=== PATIENT | female | born 1930 | race Caucasian/White ===

== ENCOUNTER 2016-04-26 11:07 | Emergency (ER) | payer MEDICARE ==
[~2016-04-26] VITALS: Ht 167.6 cm; Wt 87.6 kg
[2016-04-26 11:13] VITALS: BP 116/62; PULSE 55; RESP 15; TEMP 98.6; O2SAT 94
[2016-04-26] MEDS ORDERED: HYDR25TA5 PO (12:06)
[2016-04-26] MEDS ORDERED: [UNRECOGNIZED DRUG - CODE] (12:06)
[2016-04-26] MEDS ORDERED: GLIM2TAB PO (12:06)
[2016-04-26] MEDS ORDERED: ANAS1TAB PO (12:06)
[2016-04-26] MEDS ORDERED: WARF-23 PO (12:06)
[2016-04-26] MEDS ORDERED: CALTTAB PO (12:06)
[2016-04-26] MEDS ORDERED: DILT-64 PO (12:06)
[2016-04-26] MEDS ORDERED: MULT400T PO (12:06)
[2016-04-26] MEDS ORDERED: DONE10TA7 PO (12:06)
[2016-04-26] MEDS ORDERED: WARF-21 PO (12:06)
[2016-04-26] MEDS ORDERED: METO25TA3 PO (12:06)
[2016-04-26] MEDS ORDERED: NAME10TA PO (12:06)
[2016-04-26] MEDS ORDERED: LOSA50TA PO (12:06)
[2016-04-26] MEDS ORDERED: SODIUM CHLORIDE 0.9% FLUSH 5 ML FLUSH IVF PRN (12:15)
--- NOTE | 2016-04-26 12:24 | PD ---
HPI Chief Complaint: General Weakness Time Seen by Provider: 12:16 Travel History International Travel<30 days: No Contact w/Intl Traveler<30days: No Traveled to known affect area: No History of Present Illness HPI 85-year-old female patient with history of dementia, A. fib on Coumadin, breast cancer currently in remission, presents to the ER today because her family states that she has been treated for UTI in the past week with Macrobid, but over the last 2 days they have noticed increased lethargy and disorientation. She has had no fevers, vomiting, or other complaints. Modifying Factors: None Associated Signs & Symptoms: Increased altered mental status, lethargy, after UTI treatment Risk Factors: Dementia PFSH Past Medical History Alzheimer's Disease: Yes (DEMENTIA) Atrial Fibrillation: Yes Cancer: Yes (BREAST) Diabetes: Yes Patient Takes Glucophage: No Hypertension: Yes ?: Not Past Surgical History Hysterectomy: Yes Other Surgery: Yes (LUMPECTOMY) Social History Alcohol Use: No Tobacco Use: No Substance Use: No Allergies-Medications (Allergen,Severity, Reaction): Coded Allergies: No Known Allergies (Unverified , 04/26/16) Reported Meds & Prescriptions Reported Meds & Active Scripts Active Reported Metoprolol Tartrate 25 Mg Tab 25 Mg PO BID Donepezil 10 Mg Tab 10 Mg PO HS Glimepiride 2 Mg Tab 2 Mg PO DAILY Take with breakfast or first main meal Losartan (Losartan Potassium) 50 Mg Tab 50 Mg PO DAILY Anastrozole 1 Mg Tab 1 Mg PO DAILY Namenda (Memantine) 10 Mg Tab 10 Mg PO BID Hydrochlorothiazide 25 Mg Tab 25 Mg PO DAILY Multaq (Dronedarone) 400 Mg Tab 400 Mg PO BID Caltrate 600+D (Calcium Carbonate-Cholecalciferol) 600-800 Mg-Unit Tab 1 Tab PO BID Nitrofurantoin (Bulk) Bulk Pow Diltiazem CD 24 HR 240 Mg Caper 240 Mg PO DAILY Warfarin 7.5 Mg Tab 7.5 Mg PO 2 DAYS Warfarin 5 Mg Tab 5 Mg PO 5 DAYS Review of Systems Except as stated in HPI: all other systems reviewed are Neg (per family) Physical Exam Narrative GENERAL: Well-developed elderly white female who is currently awake, alert, slow to answer questions, oriented to self. SKIN: Warm and dry. HEAD: Atraumatic. Normocephalic. EYES: Pupils equal and round. No scleral icterus. No injection or drainage. ENT: No nasal bleeding or discharge. Mucous membranes pink and moist. NECK: Trachea midline. No JVD. CARDIOVASCULAR: Slow and regular. No murmurs appreciated.. RESPIRATORY: No accessory muscle use. Clear to auscultation. Breath sounds equal bilaterally. GASTROINTESTINAL: Abdomen soft, non-tender, nondistended. Hepatic and splenic margins not palpable. MUSCULOSKELETAL: No obvious deformities. No clubbing. No cyanosis. No edema. NEUROLOGICAL: Awake and alert. No obvious cranial nerve deficits. Motor grossly within normal limits. Normal speech. Slow to answer questions. Oriented to self. PSYCHIATRIC: Appropriate mood and affect; insight and judgment normal. Data Data Last Documented VS Vital Signs Date Time Temp Pulse Resp B/P Pulse Ox O2 Delivery O2 Flow Rate FiO2 04/26/16 13:45 52 20 127/61 93 04/26/16 11:13 98.6 Orders Electrocardiogram (04/26/16 12:05) Complete Blood Count With Diff (04/26/16 12:05) Comprehensive Metabolic Panel (04/26/16 12:05) Prothrombin Time / Inr (Pt) (04/26/16 12:05) Act Partial Throm Time (Ptt) (04/26/16 12:05) Troponin I (04/26/16 12:05) Lactic Acid Sepsis Protocol (04/26/16 12:05) Urinalysis - C+S If Indicated (04/26/16 12:05) Blood Culture (04/26/16 12:05) Blood Glucose (04/26/16 12:05) Ecg Monitoring (04/26/16 12:05) Iv Access Insert/Monitor (04/26/16 12:05) Cath For Specimen (04/26/16 12:05) Oximetry (04/26/16 12:05) Sodium Chloride 0.9% Flush (Ns Flush) (04/26/16 12:15) Chest, Single Ap (04/26/16 12:16) Ct Brain W/O Iv Contrast(Rout) (04/26/16 12:16) Sodium Chlorid 0.9% 500 Ml Inj (Ns 500 M (04/26/16 14:00) Labs Laboratory Tests Test 04/26/16 04/26/16 04/26/16 12:20 12:30 12:35 White Blood Count 9.5 TH/MM3 Red Blood Count 4.05 MIL/MM3 Hemoglobin 11.5 GM/DL Hematocrit 35.1 % Mean Corpuscular Volume 86.6 FL Mean Corpuscular Hemoglobin 28.4 PG Mean Corpuscular Hemoglobin 32.8 % Concent Red Cell Distribution Width 14.0 % Platelet Count 266 TH/MM3 Mean Platelet Volume 7.1 FL Neutrophils (%) (Auto) 73.6 % Lymphocytes (%) (Auto) 14.4 % Monocytes (%) (Auto) 7.5 % Eosinophils (%) (Auto) 0.7 % Basophils (%) (Auto) 3.8 % Neutrophils # (Auto) 6.9 TH/MM3 Lymphocytes # (Auto) 1.4 TH/MM3 Monocytes # (Auto) 0.7 TH/MM3 Eosinophils # (Auto) 0.1 TH/MM3 Basophils # (Auto) 0.4 TH/MM3 CBC Comment DIFF FINAL Differential Comment Prothrombin Time 34.9 SEC Prothromb Time International 3.0 RATIO Ratio Activated Partial 40.8 SEC Thromboplast Time Sodium Level 132 MEQ/L Potassium Level 4.7 MEQ/L Chloride Level 95 MEQ/L Carbon Dioxide Level 26.6 MEQ/L Anion Gap 10 MEQ/L Blood Urea Nitrogen 22 MG/DL Creatinine 1.30 MG/DL Estimat Glomerular Filtration 39 ML/MIN Rate Random Glucose 194 MG/DL Calcium Level 8.3 MG/DL Total Bilirubin 0.3 MG/DL Aspartate Amino Transf 30 U/L (AST/SGOT) Alanine Aminotransferase 19 U/L (ALT/SGPT) Alkaline Phosphatase 48 U/L Troponin I LESS THAN 0.02 NG/ML Total Protein 6.6 GM/DL Albumin 2.8 GM/DL Lactic Acid Level 2.1 mmol/L Urine Collection Type CATH Urine Color YELLOW Urine Turbidity CLEAR Urine pH 6.0 Urine Specific [place] 1.023 Urine Protein NEG mg/dL Urine Glucose (UA) NEG mg/dL Urine Ketones NEG mg/dL Urine Occult Blood NEG Urine Nitrite NEG Urine Bilirubin NEG Urine Leukocyte Esterase NEG Urine WBC 0-2 /hpf Urine Squamous Epithelial 0-5 /hpf Cells Microscopic Urinalysis Comment CULT NOT INDICATED MDM Medical Decision Making Medical Screen Exam Complete: Yes Emergency Medical Condition: Yes Medical Record Reviewed: Yes Interpretation(s) EKG shows sinus bradycardia at a rate of 54 bpm with no signs of acute ST-T changes. Laboratory Tests Test 04/26/16 04/26/16 12:20 12:30 Hemoglobin 11.5 GM/DL (11.6-15.3) Neutrophils (%) (Auto) 73.6 % (16.0-70.0) Basophils (%) (Auto) 3.8 % (0.0-2.0) Basophils # (Auto) 0.4 TH/MM3 (0-0.2) Prothrombin Time 34.9 SEC (9.8-11.6) Activated Partial 40.8 SEC Thromboplast Time (24.3-30.1) Sodium Level 132 MEQ/L (136-145) Chloride Level 95 MEQ/L (98-107) Blood Urea Nitrogen 22 MG/DL (7-18) Creatinine 1.30 MG/DL (0.50-1.00) Estimat Glomerular Filtration 39 ML/MIN (>89) Rate Random Glucose 194 MG/DL (74-106) Calcium Level 8.3 MG/DL (8.5-10.1) Troponin I LESS THAN 0.02 NG/ML (0.02-0.05) Albumin 2.8 GM/DL (3.4-5.0) Lactic Acid Level 2.1 mmol/L (0.4-2.0) Differential Diagnosis Altered mental status, lethargydehydration versus metabolic issues versus dysrhythmias versus sepsis versus acute intracranial processes Narrative Course Lab work did not indicate significant leukocytosis. Her CAT scan the brain is negative. UA is negative. Chest x-ray is unremarkable. Patient was given IV fluid bolus in the ER. Vital signs are stable. Patient has no focal neurological deficits. At this point, I have discussed observation admission versus released with follow-up to primary care physician on Wednesday with patient' s family. We have weighed about the risks and benefits of keeping her considering her dementia, and the family states that they are comfortable with outpatient follow-up at this point. She needs to return if symptoms worsen. They are suspecting that she may be somewhat dehydrated. No signs of orthostasis in the ER after IV fluid bolus. At this point, I would encourage her to eat and drink regularly. Patient's family state understanding. Diagnosis Primary Impression: Mild dehydration Additional Impression: Altered mental status Disposition: 01 DISCHARGE HOME Condition: Stable Eliza Patton MD Apr 26, 2016 12:24
[2016-04-26 12:32] LABS: AUTOMATED NEUTROPHIL # 6.9 TH/MM3 (1.8-7.7); BASOPHIL # 0.4 TH/MM3 (0-0.2); BASOPHIL % 3.8 % (0.0-2.0); EOSINOPHIL # 0.1 TH/MM3 (0-0.4); EOSINOPHIL % 0.7 % (0.0-4.0); HEMATOCRIT 35.1 % (35.0-46.0); HEMO FLAGS DIFF FINAL; LYMPH % 14.4 % (9.0-44.0); LYMPHOCYTE # 1.4 TH/MM3 (1.0-4.8); MEAN CELL VOLUME 86.6 FL (80.0-100.0); MEAN CORPUSCULAR HEMOGLOBIN 28.4 PG (27.0-34.0); MEAN CORPUSCULAR HGB CONC 32.8 % (32.0-36.0); MONO % 7.5 % (0.0-8.0); NEUT % 73.6 % (16.0-70.0); PLATELET COUNT 266 TH/MM3 (150-450); RED BLOOD COUNT 4.05 MIL/MM3 (4.00-5.30); WHITE BLOOD COUNT 9.5 TH/MM3 (4.0-11.0)
[2016-04-26 12:41] LABS: CHLORIDE 95 MEQ/L (98-107); SODIUM (NA) 132 MEQ/L (136-145)
[2016-04-26 12:42] VITALS: O2SAT 96
[2016-04-26 12:43] VITALS: BP 127/61; PULSE 53; RESP 18; O2SAT 97
[2016-04-26 12:45] LABS: ANION GAP 10 MEQ/L (5-15); APTT (PATIENT) 40.8 SEC (24.3-30.1); BICARBONATE 26.6 MEQ/L (21.0-32.0); BLOOD UREA NITROGEN 22 MG/DL (7-18); PROTHROMBIN TIME - PATIENT 34.9 SEC (9.8-11.6)
[2016-04-26 12:46] LABS: POTASSIUM 4.7 MEQ/L (3.5-5.1)
[2016-04-26 12:47] LABS: BLOOD, URINE NEG (NEG); GLUCOSE,URINE NEG (NEG); KETONE, URINE NEG (NEG); NITRITE,URINE NEG (NEG)
[2016-04-26 12:48] LABS: METHOD OF COLLECTION CATH; URINE COLOR YELLOW (YELLW/STRAW)
[2016-04-26 12:48] LABS: ALT (GPT) 19 U/L (10-53); AST (GOT) 30 U/L (15-37); GLOMERULAR FILTRATION RATE 39 ML/MIN (>89)
[2016-04-26 12:50] LABS: TOTAL BILIRUBIN ADULT 0.3 MG/DL (0.2-1.0)
[2016-04-26 12:50] LABS: COMMENT (UR) CULT NOT INDICATED; CULTURE IF INDICATED CULT NOT INDICATED; SQUAMOUS EPITHELIAL CELL URINE 0-5 /hpf (0-5); WBC, URINE 0-2 /hpf (0-5)
[2016-04-26 12:51] LABS: ALKALINE PHOSPHATASE 48 U/L (45-117)
--- NOTE | 2016-04-26 12:58 | RADHPO ---
EXAM DATE/TIME: 04/26/2016 12:48 [facility] COMPARISON: No previous studies available for comparison. INDICATIONS : Palpitations MEDICAL HISTORY : Carcinoma, breast. SURGICAL HISTORY : left lumpectomy ENCOUNTER: Initial ACUITY: 1 day PAIN SCORE: 0/10 LOCATION: Bilateral chest FINDINGS: A single view of the chest demonstrates the lungs to be symmetrically aerated without evidence of mas s, infiltrate or effusion. The cardiomediastinal contours are unremarkable. Osseous structures are intact. Clips are seen in the left axillary region. CONCLUSION: No acute disease. Robel Saeed MD on April 26, 2016 at 12:56 Board Certified Radiologist. This report was verified electronically.
--- NOTE | 2016-04-26 13:36 | RADHPO ---
EXAM DATE/TIME: 04/26/2016 13:04 [facility] COMPARISON: No previous studies available for comparison. INDICATIONS : Cephalgia. RADIATION DOSE: 63.92 CTDIvol (mGy) MEDICAL HISTORY : Hypertension. Dementia. SURGICAL HISTORY : None. ENCOUNTER: Initial ACUITY: 1 day PAIN SCALE: 5/10 LOCATION: cranial TECHNIQUE: Multiple contiguous axial images were obtained of the head. Using automated exposure control and adj ustment of the mA and/or kV according to patient size, radiation dose was kept as low as reasonably a chievable to obtain optimal diagnostic quality images. FINDINGS: CEREBRUM: There is decreased density in the right parietal, right occipital, and right temporal lobes. The hailee tricles are widened. No evidence of midline shift, mass lesion, hemorrhage or acute infarction. No extra-axial fluid collections are seen. POSTERIOR FOSSA: The cerebellum and brainstem are intact. The 4th ventricle is midline. The cerebellopontine angle i s unremarkable. EXTRACRANIAL: The visualized portion of the orbits is intact. SKULL: The calvaria is intact. No evidence of skull fracture. 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 Significant mass effect is not seen. An acute abnormality is not seen. There is age-related atrophy . Robel Saeed MD on April 26, 2016 at 13:32 Board Certified Radiologist. This report was verified electronically.
[2016-04-26 13:45] VITALS: BP 127/61; PULSE 52; RESP 20; O2SAT 93
[2016-04-26] MEDS ORDERED: SODIUM CHLORID 0.9% 500 ML INJ 500 ML IV ONE (14:00)
[2016-04-26 14:35] VITALS: BP_SYST 120; BP_SYST 130; BP_SYST 153; BP_DIAS 61; BP_DIAS 75; RESP 20
[2016-04-26 14:38] LABS: LACTIC ACID GHOST NOT REPORTABLE
--- NOTE | 2016-04-27 14:54 | EKG ---
Date Performed: 04/26/2016 Time Performed: 12:17:46 PTAGE: 85 years EKG: Sinus bradycardia with sinus arrhythmia with borderline 1st degree A-V block Prolonged QT i nterval Leftward axis Possible anterior infarct - age undetermined Lateral T wave changes are nonspec ific Low QRS voltages in precordial leads Abnormal ECG NO PREVIOUS TRACING DOCTOR: Clarice Salazar Interpretating Date/Time 04/27/2016 14:49:32
== END 2016-04-26 15:04 | disposition home or self-care (01) ==
LOC: PHED 11:07
DX: E86.0 Dehydration (principal); G30.9 Alzheimer's disease, unspecified; I48.91 Unspecified atrial fibrillation; I10 Essential (primary) hypertension; E11.9 Type 2 diabetes mellitus without complications; Z85.3 Personal history of malignant neoplasm of breast
CPT/HCPCS: 70450; 71010; 80053; 81001; 83605; 84484; 85025; 85610; 85730; 87040; 93005; 96360; 99285; J7040; P9612